=== PATIENT | male | born 1955 | race Caucasian/White ===

== ENCOUNTER 2018-09-22 16:51 | Emergency (ER) | payer OTHER ==
[~2018-09-22] VITALS: Ht 170.2 cm; Wt 77.3 kg
[~2018-09-22 16:51] MED LIST: BENA10TA4 PO; COU5 PO; METO-319 PO; OMEP20CA16 PO; SERT25TA83 PO
[2018-09-22 17:02] VITALS: Ht 170.2 cm; Wt 77.3 kg
[2018-09-22] MEDS ORDERED: LORAZEPAM 2 MG INJ IM ONE ×2 (18:00→20:30)
--- NOTE | 2018-09-22 20:04 | ERD ---
ER Documentation Chief Complaint Chief Complaint BIB RA: found outside [employer] w R eyebrow lac/ ETOH intoxication HPI This is 62-year-old male who was found stumbling around outside of the [address], obviously intoxicated. Bystanders called 911 and EMS has brought him in. Patient has been cooperative and noncombative and pleasant he does have a right eyebrow injury, he says that he admits to drinking beer today but he is not recalling falling down. Denies any headache or neck pain or other complaints ROS All systems reviewed and are negative except as per history of present illness. Medications Home Meds Reported Medications Warfarin Sod (Coumadin) 5 Mg Tablet, 5 MG PO DAILY, TAB 05/05/14 Sertraline Hcl* (Sertraline Hcl*) 25 Mg Tablet, 25 MG PO DAILY, TAB 05/05/14 Benazepril Hcl* (Benazepril Hcl*) 10 Mg Tablet, 10 MG PO DAILY, TAB 05/05/14 Omeprazole* (Omeprazole*) 20 Mg Capsule.dr, 20 MG PO DAILY, CAP 05/05/14 Metoprolol Succinate* (Toprol XL*) 50 Mg Tab.er.24h, 50 MG PO DAILY, TAB 05/05/14 Allergies Allergies: Coded Allergies: celecoxib (Unverified Allergy, Unknown, 05/05/14) PMhx/Soc History of Surgery: Yes (05/05 s/p R LOTTIE, posterior approach) Anesthesia Reaction: No Hx Neurological Disorder: No Hx Respiratory Disorders: No Hx Cardiac Disorders: Yes (HTN) Hx Psychiatric Problems: No Hx Miscellaneous Medical Probl: Yes (htn, hld, 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) Hx Alcohol Use: No Hx Substance Use: No Hx Tobacco Use: No Smoking Status: Unknown if ever smoked FmHx Family History: No coronary disease Physical Exam Vitals Vital Signs Date Temp Pulse Resp B/P (MAP) Pulse Ox O2 O2 Flow FiO2 Time Delivery Rate 09/22/18 97.9 69 20 153/111 99 17:02 (125) 09/22/18 97.9 69 16 153/111 98 Room Air 17:01 (125) Physical Exam Const: Well-developed, well-nourished, intoxicated Head: Atraumatic, normocephalic Eyes: Normal Conjunctiva, PERRLA, EOMI, normal sclera, no nystagmus ENT: Normal External Ears, Nose and Mouth, moist mucus membranes, the right lateral eyebrow has an abrasion no laceration. Neck: Full range of motion. No meningismus, no lymphadenopathy. Resp: Clear to auscultation bilaterally, no wheezing, rhonchi, rales Cardio: Regular rate and rhythm, no murmurs, S1 S2 present Abd: Soft, non tender x 4, non distended. Normal bowel sounds, no g uarding or rebound, no pulsitile abdominal masses or bruits Skin: No petechiae or rashes, no ecchymosis , no maculopapular rash Back: No midline or flank tenderness Ext: No cyanosis, or edema, FROM x 4, normal inspection, neurovascular ly intact x 4 Neur: Awake and alert, STR 5/5 x 4, sensation intact x 4, no focal findings, cerebellum intact Psych: Normal Mood and Affect Results 24 hrs Current Medications Medications Dose Sig/Byron Start Time Status Last (Trade) Ordered Route PRN Stop Time Admin Dose Reason Admin Lorazepam 1 mg ONCE ONCE 09/22/18 DC 09/22/18 (Ativan) IM 18:00 09/22/18 18:37 18:01 Lorazepam 1 mg ONCE ONCE 09/22/18 DC 09/22/18 (Ativan) IM 20:30 09/22/18 20:33 20:31 Procedures/MDM MR #: [id number] DOS: 09/22/18 1740 Ordering MD: JOAQUIN YE DO Location: E/R Room/Bed: PROCEDURE: CT Cervical Spine. CLINICAL INDICATION: Trauma with neck pain. Previous study the patient was unable to hold still with prominent resultant motion artifact. TECHNIQUE: A CT of the cervical spine was performed on a multi-slice CT scanner utilizing thin section axial images from the skull base through the thoracic inlet. Sagittal and coronal reformatted images were made. The CTDIvol is 22 mGy and the DLP is 478 mGycm. DICOM images are available. 3-D reconstructions were notperformed. One or more of the following dose reduction techniques were utilized: 1.) Automated exposure control 2.) Adjustment of the mA +/- kV according to patient's size 3.) Use of iterative reconstruction technique. COMPARISON: None. FINDINGS: Bony alignment is normal. Vertebral body heights are maintained. There is diffuse disc disease most prominent at C5-6 and C6-7 with enthesopathy at all levels. The atlanto-axial and craniocervical relationships are normal except for typical degenerative disease. There is diffuse degenerative facet disease bilaterally. Moderate neural foraminal stenosis is present at both C4 root levels, mild stenosis at the right C5 root level, severe stenosis of both C6 root levels, and moderate to severe stenosis of both C7 root levels. No fractures are identified. No paravertebral soft tissue abnormalities are identified. IMPRESSION: 1. No visible acute traumatic abnormality of the cervical spine. 2. Moderate to severe diffuse degenerative change throughout the cervical spine as described above. RPTAT:AAJJ Physician Radha Date Time Electronically viewed and signed by Physician Radha on 09/22/2018 19:55 GW/ CC: JOAQUIN YE DO [id number] MR #: [id number] DOS: 09/22/18 1700 Ordering MD: JOAQUIN YE DO Location: E/R Room/Bed: PROCEDURE: CT Head without. CLINICAL INDICATION: Trauma. TECHNIQUE: The study was performed utilizing a multi-slice, multidetector CT scanner. Direct spiral 1 mm axial sections were obtained through the head without the use of intravenous contrast material. 1 or more of the following dose reduction techniques were utilized: Automated exposure control, adjustment of the mA and/or kV according to patient's size, iterative reconstruction technique. Coronal and sagittal reformations were obtained. The images were reviewed on a PACS workstation. DICOM images are available. RADIATION DOSE: CTDIvol: 95.1 mGy mGy DLP: 1328.89 mGy.cm mGy-cm COMPARISON: No prior studies are available for comparison. FINDINGS: There is mild motion artifact involving the upper and lower cranial vaults with associated streak artifact, limiting evaluation in these regions. There is no intracranial hemorrhage, extra-axial fluid collection, mass lesion, midline sh ift or hydrocephalus. There is moderate prominence of the cerebral sulci, lateral and third ventricles. There is mild to moderate patchy periventricular and subcortical white matter hypodensity. There is mild arteriosclerotic calcification of the parasellar internal carotid arteries. The berman-white matter differentiation is preserved. The basal cisterns are patent. The midlin e structures are intact. There is bilateral aphakia. The orbits, calvarium and extracranial soft tissues are normal in appearance. The visualized paranasal sinuses, mastoid air cells and middle ear cavities are normally aerated. IMPRESSION: 1. Moderate motion artifact in the upper and lower cranial vault, limiting evaluation in these regions. Repeat examination would be helpful for further evaluation. 2. No evidence of acute intracranial abnormality. No intracranial hemorrhage, extra-axial fluid collection, mass lesion or hydrocephalous. 3. Moderate peripheral and central cerebral volume loss. 4. Mild to moderate patchy periventricular and subcortical white matter hypodensity, likely related to chronic microangiopathic changes. RPTAT: HGAS .Néstor Rodriguez MD, MD Date Time Electronically viewed and signed by .Néstor Rodriguez MD, MD on 09/22/2018 17:20 .S/ CC: JOAQUIN YE DO [id number] Patient required Ativan to remain still in order to get his neck CAT scan. There is no acute fracture or brain injury. We will let him sober up in the ER. When he is awake and alert oriented ambulatory without difficulty he can be discharged home PROCEDURE: CT Head without. CLINICAL INDICATION: Trauma status post fall. TECHNIQUE: The study was performed utilizing a multi-slice, multidetector CT scanner. Direct spiral 1 mm axial sections were obtained through the head without the use of intravenous contrast material. 1 or more of the following dose reduction techniques were utilized: Automated exposure control, adjustment of the mA and/or kV according to patient's size, iterative reconstruction technique. Coronal and sagittal reformations were obtained. The images were reviewed on a PACS workstation. DICOM images are available. RADIATION DOSE: CTDIvol: 72.42 mGy mGy DLP: 1347.74 mGy.cm mGy-cm COMPARISON: 09/22/2018 FINDINGS: There is moderate motion artifact involving the lower cranial vaults with associated streak artifact, limiting evaluation in these regions. There is no intracranial hemorrhage, extra-axial fluid collection, mass lesion, midline shift or hydrocephalus. There is moderate prominence of the cerebral sulci, lateral and third ventricles. There is mild to moderate patchy periventricular and subcortical white matter hypodensity. There is mild arteriosclerotic calcification of the parasellar internal carotid arteries. The berman-white matter differentiation is preserved. The basal cisterns are patent. The midline structures are intact. The orbits, calvarium and extracranial soft tissues are normal in appearance. The visualized paranasal sinuses, mastoid air cells and middle ear cavities are normally aerated. Limited visualization of the nasal bones demonstrates chronic-appearing fracture of the left nasal bone. IMPRESSION: 1. Moderate motion artifact in the lower cranial vault, limiting evaluation in these regions. The motion artifact is improved compared to the prior examination involving the supraclinoid region as well as the superior cranial vault. 2. No evidence of acute intracranial abnormality. No intracranial hemorrhage, extra-axial fluid collection, mass lesion or hydrocephalous. 3. Moderate peripheral and central cerebral volume loss. 4. Mild to moderate patchy periventricular and subcortical white matter hypodensity, likely related to chronic microangiopathic changes. 5. Limited visualization of the nasal bones demonstrates chronic-appearing fracture of the left nasal bone. RPTAT: HGAS .Néstor Rodriguez MD, Date Time Electronically viewed and signed by .Néstor Rodriguez MD, on 09/22/2018 21:56 .S/ CC: JOAQUIN YE DO [id number] Departure Diagnosis: Primary Impression: Alcoholic intoxication Complication of substance-induced condition: uncomplicated Qualified Codes: F10.920 - Alcohol use, unspecified with intoxication, uncomplicated Additional Impression: Head injury Encounter type: initial encounter Qualified Codes: S09.90XA - Unspecified injury of head, initial encounter Condition: Stable Patient Instructions: Alcohol Intoxication, HEAD INJURY with Wake-Up (Adult) Referrals: DOCTOR,NOT ON STAFF (PCP) JOAQUIN YE DO Sep 22, 2018 20:04
[2018-09-23 05:30] VITALS: BP 141/87; PULSE 70; RESP 16
== END 2018-09-23 05:30 | disposition home or self-care (01) ==
LOC: E/R 16:51
DX: F10.920 Alcohol use, unspecified with intoxication, uncomplicated (principal); S00.81XA Abrasion of other part of head, initial encounter; I10 Essential (primary) hypertension; I25.2 Old myocardial infarction; R94.02 Abnormal brain scan; X58.XXXA Exposure to other specified factors, initial encounter; Y92.9 Unspecified place or not applicable
CPT/HCPCS: 70450; 72125; 96372; J2060; Z7502